=== PATIENT | female | born 1960 | race Caucasian/White ===

== ENCOUNTER 2023-07-11 11:11 | Emergency (ER) | payer BC, SELFPAY ==
[2023-07-11 11:12] VITALS: BP 132/97; PULSE 94; RESP 19; TEMP 36.4; O2SAT 99; BMI 35.0
--- NOTE | 2023-07-11 11:29 | PC.NURSE ---
dr olson at bedside
[2023-07-11 11:30] VITALS: BP 119/82; PULSE 98; O2SAT 96
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
[2023-07-11] MEDS: KETOROLAC 30MG/ML VIAL 15 MG IV (11:45)
[2023-07-11] MEDS: ACETAMINOPHEN 1,000MG/100ML VIAL 1000 MG IV (11:45)
--- NOTE | 2023-07-11 11:50 | ECG_ITS ---
APPROVED REPORT Exam: Resting ECG HR:78 bpm ECG Measurements Heart Rate 78 AXES SD 165 P 17 QRSd 93 QRS 16 QT 389 T 14 QTc 422 Conclusion SINUS RHYTHM NORMAL ECG Electronically signed by : GREY WALSH, 07/12/2023 07:23:58
[2023-07-11 11:51] LABS: Basophils # 0.1 K/mm3 (0-0.2); Basophils % 0.7 % (0.1-2.0); Eosinophils # 0.2 K/mm3 (0.0-0.4); Hematocrit 46.4 % (37.0-47.0); Hemoglobin 14.6 g/dL (12.2-16.2); Lymphocytes # 2.4 K/mm3 (0.7-4.5); Lymphocytes % 15.1 % (10-50); Mean Corpuscular HGB Conc 31.4 g/dL (31.8-35.4); Mean Corpuscular Hemoglobin 31.5 pg (27.0-31.2); Mean Corpuscular Volume 100.3 fl (81-99); Mean Platelet Volume 10.2 fl (7.4-10.4); Monocytes # 0.6 K/mm3 (0.1-1.0); Monocytes % 3.5 % (1.7-9.3); Neutrophils # 12.6 K/mm3 (1.8-7.8); Neutrophils % 79.7 % (37.0-80.0); Platelet Count 302 K/mm3 (142-424); Red Blood Count 4.62 M/mm3 (4.20-5.40); Red Cell Distribution Width 13.9 % (11.5-17.5); White Blood Count 15.8 K/mm3 (4.8-10.8)
[2023-07-11 11:53] LABS: Chloride 106 mmol/L (98-107)
[2023-07-11 11:54] LABS: MANUAL DIFFERENTIAL MANUAL DIFFERENTIAL (MANUAL DIFF); Potassium 4.1 mmoL/L (3.5-5.1); Sodium 139 mmol/L (136-145)
[2023-07-11 11:56] LABS: Alanine Aminotransferase 22 U/L (12-78); Alkaline Phosphatase 73 U/L (38-126); Aspartate Amino Transferase 28 U/L (14-36); Bilirubin,Total 0.9 mg/dl (0.2-1.3); Blood Urea Nitrogen 15 mg/dl (7-17); Creatinine Clearance Estimated 79 mL/min (50-200); Estimated Glomerular Filt Rate 46 ml/min (>60); GFR (African American) 55 ML/MIN (>60)
[2023-07-11 11:57] LABS: Albumin Level 4.3 g/dl (3.5-5.0); Albumin/Globulin Ratio 1.7 (1.1-1.8); Calcium 9.8 mg/dl (8.4-10.2); Globulin 2.6 g/dL (1.3-3.2); Glucose 96 mg/dl (74-100); Lipase 88 U/L (23-300); Total Protein,Serum 6.9 g/dl (6.3-8.2)
[2023-07-11 11:58] LABS: Activated Partial Thrombo Time 28.9 seconds (22.8-30.6); INR 1.02 (0.9-1.1)
[2023-07-11 12:01] VITALS: BP 98/65; PULSE 87; O2SAT 98
[2023-07-11 12:20] LABS: Eosinophils % 1 % (0-3); Lymphocytes % 15 % (10-50); Monocytes % 5 % (2-9); Neutrophils % 79 % (42-76); Total Cells Counted 100
[2023-07-11 12:21] LABS: Platelet Estimate Normal; RBC Morphology Normal; Troponin I < 0.01 ng/ml (0.00-0.034)
[2023-07-11 12:22] LABS: Microscopic, Urine URINE MICROSCOPIC (MICROSCOPIC)
--- NOTE | 2023-07-11 12:22 | PC.NURSE ---
pt to ct scan
[2023-07-11 12:27] LABS: Appearance,Urine CLEAR (Clear); Bilirubin,Urine Negative (Negative); Blood, Urine TRACE-I (Negative); Color,Urine YELLOW (Yellow); Glucose,Urine (UA) Negative (Negative); Ketones,Urine Negative (Negative); Leukocyte Esterase,Urine TRACE (Negative); Nitrate,Urine Negative (Negative); Protein,Urine Negative (Negative); Specific Gravity, Urine 1.015 (1.005-1.030); Urobilinogen,Urine 0.2 EU/dl (0.2)
[2023-07-11 12:37] LABS: Anion Gap 10.1 mEq/L (5-15); Carbon Dioxide 27 mmol/L (22.0-30.0)
--- NOTE | 2023-07-11 12:40 | PC.NURSE ---
PT RETURNED FROM CT
[2023-07-11] MEDS: 0.9 % SODIUM CHLORIDE 50 ML VIAL IV (12:43)
[2023-07-11] MEDS: SODIUM CHLORIDE 0.9% 10ML SYR (RAD ONLY) 10 ML IV (12:43)
[2023-07-11] MEDS: IOPAMIDOL-370 (76%);100ML BOTTLE 100 ML IV (12:43)
[2023-07-11 13:00] LABS: Bacteria,Urine Trace /lpf; WBC,Urine Occasional #/hpf (0-3)
--- NOTE | 2023-07-11 13:49 | PC.NURSE ---
DR URENA AT BEDSIDE
[2023-07-11 13:58] VITALS: BP 112/80; PULSE 77; RESP 18; TEMP 36.6; O2SAT 99
== END 2023-07-11 13:58 | disposition home or self-care (01) ==
PROVIDERS: Emergency Provider Emergency Medicine
DX: S20.211A Contusion of right front wall of thorax, initial encounter (principal); S30.1XXA Contusion of abdominal wall, initial encounter; S10.91XA Abrasion of unspecified part of neck, initial encounter; S80.11XA Contusion of right lower leg, initial encounter; S80.12XA Contusion of left lower leg, initial encounter; V47.5XXA Car driver injured in collision with fixed or stationary object in traffic accident, initial encounter; Y92.410 Unspecified street and highway as the place of occurrence of the external cause
CPT/HCPCS: 70450; 71275; 72125; 72128; 72131; 74174; 80053; 81001; 83690; 84484; 85007; 85025; 85610; 85730; 93005; 96374; 96375; 99285; J0131; Q9967